=== PATIENT | female | born 1950 | race Caucasian/White ===

== ENCOUNTER 2017-02-01 17:35 | Inpatient (IN) | payer BC, OTHER ==
--- NOTE | 2017-02-01 18:23 | PDOC ---
History of Present Illness - General History Source: Patient Exam Limitations: No Limitations - History of Present Illness Initial Comments: 02/01/17 18:33 The patient is a 66 year old female, with a significant past medical history of high cholesterol, who was sent from an Urgent Care facility and presents to the emergency department with abdominal pain and rectal bleeding since 10 am this morning. She report initially having severe abdominal cramps this morning, followed by multiple episodes of diarrhea. She describes her stool as watery, putty like, and droplets of blood on her toilet paper and around her stool. She denies any alleviation of her pain with the passing of her bowel movement. She denies any recent travel. She denies recently eating any fish or raw meat. She denies eating any new strange food. She notes having these symptoms in the past, but they resolved shortly after a couple of minutes. She denies recent fevers, chills, headache or dizziness. She denies recent nausea, vomit, or constipation. She denies recent dysuria, frequency, urgency or hematuria. She denies recent chest pain or shortness of breath. Allergies: NKA Past surgical history: None reported. Social history: Nonsmoker. Denies EtOH use and recreational drug use. PCP: Dr. Holley (Doctor in [place]). <Jett Britton - Last Filed: 02/01/17 18:37> - General History Source: Patient Exam Limitations: No Limitations <Clarita Levi - Last Filed: 02/02/17 00:55> - General Chief Complaint: Rectal Bleed Stated Complaint: PCP SENT/RECTAL BLEED Time Seen by Provider: 02/01/17 18:15 Past History <Jett Britton - Last Filed: 02/01/17 18:37> - Past Medical History Hypercholesterolemia: Yes - Psycho/Social/Smoking Cessation Hx Suicidal Ideation: No Smoking History: Never smoked <Clarita Levi - Last Filed: 02/02/17 00:55> - Past Medical History Allergies/Adverse Reactions: Allergies Allergy/AdvReac Type Severity Reaction Status Date / Time No Known Allergies Allergy Verified 02/01/17 17:38 Home Medications: Ambulatory Orders Atorvastatin Ca [Lipitor] 10 mg PO HS 02/01/17 Levothyroxine [Synthroid -] 50 mcg PO DAILY 02/01/17 Risedronate Sodium 35 mg PO DAILY 02/01/17 Review of Systems - Review of Systems Able to Perform ROS?: Yes Comments:: 02/01/17 18:32 GENERAL/CONSTITUTIONAL: No: fever, chills, weakness, loss of appetite. HEAD, EYES, EARS, NOSE AND THROAT: No: change in vision, ear pain, discharge, sore throat, throat swelling. CARDIOVASCULAR: No: chest pain, lightheadedness, palpitations, syncope RESPIRATORY: No: cough, shortness of breath, wheezing, hemoptysis, stridor. GASTROINTESTINAL: +abd pain,diarrhea, and rectal bleed. No: nausea, vomiting, rectal bleeding, constipation. GENITOURINARY: No: dysuria, hematuria, frequency, urgency, flank pain. MUSCULOSKELETAL: No: back pain, neck pain, joint pain, muscle swelling or pain SKIN : No: lesions, pallor, rash or easy bruising. NEUROLOGIC: No: headache, vertigo, paresthesias, weakness ENDOCRINE: No: unexplained weight gain or loss HEMATOLOGIC/LYMPHATIC: No: anemia, easy bleeding, swelling nodes. <Jett Britton - Last Filed: 02/01/17 18:37> *Physical Exam - Vital Signs Last Vital Signs Temp Pulse Resp BP Pulse Ox 98.5 F 90 18 169/79 100 02/01/17 17:38 02/01/17 17:38 02/01/17 17:38 02/01/17 17:38 02/01/17 17:38 - Physical Exam Comments: 02/01/17 18:36 GENERAL: The patient is in no acute distress. HEAD: Normal with no signs of trauma. EYES: PERRLA, EOMI, sclera anicteric, conjunctiva clear. ENT: Ears normal, nares patent, oropharynx clear without exudates. Moist mucous membranes. NECK: Normal range of motion, supple without lymphadenopathy, JVD, or masses. LUNGS: Breath sounds equal, clear to auscultation bilaterally. No wheezes, and no crackles. HEART: Regular rate and rhythm, normal S1 and S2 without murmur, rub or gallop. RECTAL: 1 thrombosis external hemorrhoids. No stool in the rectal vault. ABDOMEN: +Epigastric, LLQ, and suprapubic tenderness. Soft, normoactive bowel sounds. No guarding, no rebound. No masses palpable. EXTREMITIES: Normal range of motion, no edema. No clubbing or cyanosis. No erythema, or tenderness. NEUROLOGICAL: Cranial nerves II through XII grossly intact. Normal speech. No focal neurological deficits. MUSCULOSKELETAL: Back non-tender to palpation, no CVA tenderness SKIN: Warm, Dry, normal turgor, no rashes or lesions noted. <Jett Britton - Last Filed: 02/01/17 18:37> - Vital Signs Last Vital Signs Temp Pulse Resp BP Pulse Ox 98.5 F 90 18 169/79 100 02/01/17 17:38 02/01/17 17:38 02/01/17 17:38 02/01/17 17:38 02/01/17 17:38 <Clarita Levi - Last Filed: 02/02/17 00:55> ED Treatment Course - LABORATORY CBC & Chemistry Diagram: 02/01/17 18:40 02/01/17 18:40 <Clarita Levi - Last Filed: 02/02/17 00:55> Medical Decision Making - Medical Decision Making 02/01/17 18:23 A portion of this note was documented by scribe services under my direction. I have reviewed the details of the note, within reason, and agree with the documentation with the following case summary and management plan written by me. Nursing documentation reviewed and incorporated into medical decision making 02/02/17 00:38 This is a 66 yo F with a history of HLD who presents to the ER with a complaint of abdominal pain and rectal bleeding The patient states she was in her usual state of health until this morning She had a small breakfast and developed severe lower abdominal pain she describes it as crampy, severe She has 2 small pasty bowel movement This was then followed by liquid stools which are blood tinged No vomiting Pt was afraid to eat because she was worried this could cause more severe pain She had almost continuous liquid stools with s few table spoons of blood No clots No recent travel No ill contacts No undercooked meat No uncooked seafood No international travel no camping One prior episode like this in June of 2016 Symptoms lasted 1 day and self resolved Pt went to urgent care where her insurance was not accepted She was then sent to another urgent care and told that she will need to come to the ER Pt presents to the ER with 02/02/17 00:51 02/02/17 00:52 Laboratory Tests 02/01/17 02/01/17 02/01/17 18:40 18:40 18:40 WBC 11.1 H Hgb 12.3 Hct 37.0 Plt Count 232 Neutrophils % 75.3 Lymphocytes % 17.3 INR 1.05 BUN 10 Creatinine 0.9 Random Glucose 105 Lactic Acid Urine Blood Urine Nitrite Ur Leukocyte Esterase Stool Occult Blood 02/01/17 02/01/17 02/01/17 18:40 19:23 23:00 WBC Hgb Hct Plt Count Neutrophils % Lymphocytes % INR BUN Creatinine Random Glucose Lactic Acid 2.4 H* Urine Blood Negative Urine Nitrite Negative Ur Leukocyte Esterase Negative Stool Occult Blood Negative CT: Colitis from splenic flexure to sigmoid ? ischemic colitis Case reviewed with Dr Rodríguez Recommends admission Case reviewed with Hospitalist Will give Levaquin and Flagyl NS <Clarita Levi - Last Filed: 02/02/17 00:55> *DC/Admit/Observation/Transfer - Attestations Scribe Attestion: 02/01/17 18:33 Documentation prepared by Jett Britton, acting as medical lab tech instructor for Clarita Levi MD. <Jett Britton - Last Filed: 02/01/17 18:37> - Discharge Dispostion Admit: Yes <Clarita Levi - Last Filed: 02/02/17 00:55> Diagnosis at time of Disposition: Colitis - Discharge Dispostion Condition at time of disposition: Stable - Referrals Referrals: STAFF,NOT ON [Primary Care Provider] -
[2017-02-01 18:51] LABS: EOSINOPHIL 0.1 % (0-4.5); MCH 28.6 pg (25.7-33.7); MCHC 33.4 g/dl (32.0-36.0); MEAN CELL VOLUME 85.7 fl (80-96); MEAN PLT VOLUME 6.7 fl (7.5-11.1); NEUTROPHILS 75.3 % (42.8-82.8); PLATELET COUNT 232 K/MM3 (134-434); RDW 13.9 % (11.6-15.6); WHITE BLOOD COUNT 11.1 K/mm3 (4.0-10.0)
[2017-02-01 19:10] LABS: INR 1.05 (0.82-1.09); PROTHROMBIN TIME (PATIENT) 11.6 SEC (9.98-11.88)
[2017-02-01 19:29] LABS: ALK PHOS 79 U/L (45-117); ANION GAP 11 (8-16); BILIRUBIN,TOTAL 0.4 mg/dL (0.2-1.0); CO2 25 mmol/L (21-32); CREATININE 0.9 mg/dL (0.55-1.02); GLUCOSE,RANDOM 105 mg/dL (74-106); SGOT/AST 22 U/L (15-37); SGPT/ALT 33 U/L (12-78); TOT PROT 7.8 g/dl (6.4-8.2)
[2017-02-01 19:35] LABS: URINE APPEARANCE CLEAR; URINE BILIRUBIN NEGATIVE (NEGATIVE); URINE BLOOD NEGATIVE (NEGATIVE); URINE COLOR COLORLESS; URINE GLUCOSE (UA) NEGATIVE (NEGATIVE); URINE KETONE NEGATIVE (NEGATIVE); URINE LEUK ESTERASE NEGATIVE (NEGATIVE); URINE NITRITE NEGATIVE (NEGATIVE); URINE PROTEIN NEGATIVE (NEGATIVE); URINE UROBILINOGEN NEGATIVE mg/dL (0.2-1.0)
[2017-02-02] MEDS ORDERED: LEVOFLOXACIN 750 MG IVPB 150 ML IVPB ONE ×2 (00:21→00:44)
[2017-02-02] MEDS ORDERED: METRONIDAZOLE 500 MG PREMIXED 100 ML IVPB ONE ×3 (00:21→01:22)
[2017-02-02] MEDS ORDERED: SODIUM CHLORIDE 1,000 ML IV STA ×2 (00:39→03:36)
--- NOTE | 2017-02-02 01:11 | PDOC ---
ED Treatment Course - LABORATORY CBC & Chemistry Diagram: 02/02/17 06:00 02/02/17 06:00 - ADDITIONAL ORDERS Additional order review: Laboratory Results 02/01/17 02/01/17 02/01/17 23:00 19:23 18:40 INR Sodium Potassium Chloride Carbon Dioxide Anion Gap BUN Creatinine Creat Clearance w eGFR Random Glucose Lactic Acid 2.4 H* Calcium Total Bilirubin AST ALT Alkaline Phosphatase Total Protein Albumin Urine Color Colorless Urine Appearance Clear Urine pH 7.0 Ur Specific [place] <= 1.005 Urine Protein Negative Urine Glucose (UA) Negative Urine Ketones Negative Urine Blood Negative Urine Nitrite Negative Urine Bilirubin Negative Urine Urobilinogen Negative Ur Leukocyte Esterase Negative Stool Occult Blood Negative Blood Type Antibody Screen 02/01/17 02/01/17 02/01/17 18:40 18:40 18:40 INR 1.05 Sodium 134 L Potassium 3.7 Chloride 98 Carbon Dioxide 25 Anion Gap 11 BUN 10 Creatinine 0.9 Creat Clearance w eGFR > 60 Random Glucose 105 Lactic Acid Calcium 10.0 Total Bilirubin 0.4 AST 22 ALT 33 Alkaline Phosphatase 79 Total Protein 7.8 Albumin 4.0 Urine Color Urine Appearance Urine pH Ur Specific [place] Urine Protein Urine Glucose (UA) Urine Ketones Urine Blood Urine Nitrite Urine Bilirubin Urine Urobilinogen Ur Leukocyte Esterase Stool Occult Blood Blood Type B NEGATIVE Antibody Screen Negative 02/01/17 18:40 RBC 4.32 MCV 85.7 MCHC 33.4 RDW 13.9 MPV 6.7 L Neutrophils % 75.3 Lymphocytes % 17.3 Monocytes % 6.3 Eosinophils % 0.1 Basophils % 1.0 - RADIOLOGY Radiology Studies Ordered: Category Date Time Status ABDOMEN & PELVIS CT WITH CONTR [CT] Stat CT Scan 02/01/17 19:24 Completed Medical Decision Making - Medical Decision Making 02/02/17 20:09 Case reviewed with [facility] on observation *DC/Admit/Observation/Transfer Diagnosis at time of Disposition: Colitis - Discharge Dispostion Condition at time of disposition: Stable Admit: Yes Decision to Admit order Date/Time: Decision to Admit Order Category Date Time Status Decision to Admit to Hospital Routine Admission 02/02/17 00:55 Active - Referrals - Patient Instructions - Post Discharge Activity
[2017-02-02] MEDS: SODIUM CHLORIDE 1,000 ML IV SCH (01:20)
--- NOTE | 2017-02-02 01:42 | HP ---
CHIEF COMPLAINT: abd pain, diarrhea PCP: in [place] HISTORY OF PRESENT ILLNESS: This is a 66 year old female with past medical history of hyperlipidemia, hypothyroid and osteopenia who presented to the ED with abdominal cramping associated with LBM. Pt states first 2 BMs were pasty and loose but after that were watery with flecks of blood. Pt states the abdominal cramping is usually improved with moving her bowels, but the pain shortly recurs and pt had to spend much of the day on the toilet. Pt denies fever, chills, nausea, vomiting. ER course was notable for: (1) WBC 11.1, afebrile (2) Lactic acid 2.4 (3) CT c/w colitis, ischemic vs infectious/inflammatory Recent Travel: [place] in october, denies travel [facility], [place], camping, hiking PAST MEDICAL HISTORY: HLD Hypothyroid osteopenia PAST SURGICAL HISTORY: pt denies Social History: Smoking: pt denies Alcohol: occ glass of wine or wine cooler Drugs: pt denies Family History: mother age 50s, [place], CHF, asthma father 70s, pancreatic CA to intestines brother with NIDDM half sister 40s, ?brain tumor 2 children, daughter alive and well, son with autism and MR Allergies No Known Allergies Allergy (Verified 02/01/17 17:38) HOME MEDICATIONS: 3 Medication Instructions Recorded Atorvastatin Ca [Lipitor] 10 mg PO HS 02/01/17 Levothyroxine [Synthroid -] 50 mcg PO DAILY 02/01/17 Risedronate Sodium 35 mg PO DAILY 02/01/17 REVIEW OF SYSTEMS CONSTITUTIONAL: Absent: fever, chills, diaphoresis, generalized weakness, malaise, loss of appetite, weight change HEENT: Absent: rhinorrhea, nasal congestion, throat pain, throat swelling, difficulty swallowing, mouth swelling, ear pain, eye pain, visual changes CARDIOVASCULAR: Absent: chest pain, syncope, palpitations, irregular heart rate, lightheadedness , peripheral edema RESPIRATORY: Absent: cough, shortness of breath, dyspnea with exertion, orthopnea, wheezing, stridor, hemoptysis GASTROINTESTINAL: Present: abdominal pain, diarrhea, hematochezia Absent: abdominal distension, nausea, vomiting, constipation, melena GENITOURINARY: Absent: dysuria, frequency, urgency, hesitancy, hematuria, flank pain, genital pain MUSCULOSKELETAL: Absent: myalgia, arthralgia, joint swelling, back pain, neck pain SKIN: Absent: rash, itching, pallor HEMATOLOGIC/IMMUNOLOGIC: Absent: easy bleeding, easy bruising, lymphadenopathy, frequent infections ENDOCRINE: Absent: unexplained weight gain, unexplained weight loss, heat intolerance, cold intolerance NEUROLOGIC: Absent: headache, focal weakness or paresthesias, dizziness, unsteady gait, seizure, mental status changes, bladder or bowel incontinence PSYCHIATRIC: Absent: anxiety, depression, suicidal or homicidal ideation, hallucinations. PHYSICAL EXAMINATION Vital Signs - 24 hr 3 02/01/17 02/01/17 17:38 18:46 Temperature 98.5 F Pulse Rate 90 Respiratory 18 Rate Blood Pressure 169/79 O2 Sat by Pulse 100 100 Oximetry (%) GENERAL: Awake, alert, and fully oriented, in no acute distress. HEAD: Normal with no signs of trauma. EYES: Pupils equal, round and reactive to light, extraocular movements intact, sclera anicteric, conjunctiva clear. No lid lag. EARS, NOSE, THROAT: Ears normal, nares patent, oropharynx clear without exudates. Moist mucous membranes. NECK: Normal range of motion, supple without lymphadenopathy, JVD, or masses. LUNGS: Breath sounds equal, clear to auscultation bilaterally. No wheezes, and no crackles. No accessory muscle use. HEART: Regular rate and rhythm, normal S1 and S2 without murmur, rub or gallop. ABDOMEN: Soft, not distended, normoactive bowel sounds, no guarding, no rebound , no masses. No hepatomegaly or splenomegaly. tender B/L LQ, R>L MUSCULOSKELETAL: Normal range of motion at all joints. No bony deformities or tenderness. No CVA tenderness. UPPER EXTREMITIES: 2+ pulses, warm, well-perfused. No cyanosis. No clubbing. No peripheral edema. LOWER EXTREMITIES: 2+ pulses, warm, well-perfused. No calf tenderness. No peripheral edema. NEUROLOGICAL: Cranial nerves II-XII intact. Normal speech. Normal gait. PSYCHIATRIC: Cooperative. Good eye contact. Appropriate mood and affect. SKIN: Warm, dry, normal turgor, no rashes or lesions noted, normal capillary refill. Laboratory Results - last 24 hr 3 02/01/17 02/01/17 02/01/17 02/01/17 18:40 18:40 18:40 23:00 WBC 11.1 H RBC 4.32 Hgb 12.3 Hct 37.0 MCV 85.7 MCH 28.6 MCHC 33.4 RDW 13.9 Plt Count 232 MPV 6.7 L Neutrophils % 75.3 Lymphocytes % 17.3 Monocytes % 6.3 Eosinophils % 0.1 Basophils % 1.0 INR 1.05 Sodium 134 L Potassium 3.7 Chloride 98 Carbon Dioxide 25 Anion Gap 11 BUN 10 Creatinine 0.9 Creat Clearance w eGFR > 60 Random Glucose 105 Lactic Acid 2.4 H* Calcium 10.0 Total Bilirubin 0.4 AST 22 ALT 33 Alkaline Phosphatase 79 Total Protein 7.8 Albumin 4.0 Urine Color Urine Appearance Urine pH Ur Specific [place] Urine Protein Urine Glucose (UA) Urine Ketones Urine Blood Urine Nitrite Urine Bilirubin Urine Urobilinogen Ur Leukocyte Esterase Stool Occult Blood Negative Blood Type B NEGATIVE Antibody Screen Negative 3 Urine Color Colorless 02/01/17 19:23 Urine Appearance Clear 02/01/17 19:23 Urine pH 7.0 (5.0-8.0) 02/01/17 19:23 Ur Specific [place] <= 1.005 (1.005-1.025) 02/01/17 19:23 Urine Protein Negative (NEGATIVE) 02/01/17 19:23 Urine Glucose (UA) Negative (NEGATIVE) 02/01/17 19:23 Urine Ketones Negative (NEGATIVE) 02/01/17 19:23 Urine Blood Negative (NEGATIVE) 02/01/17 19:23 Urine Nitrite Negative (NEGATIVE) 02/01/17 19:23 Urine Bilirubin Negative (NEGATIVE) 02/01/17 19:23 Ur Leukocyte Esterase Negative (NEGATIVE) 02/01/17 19:[address]/ABDOMEN PELVIS CT WITH CONTR Abdomen and pelvis CT (with contrast) Clinical information: left lower quadrant tenderness, rectal bleeding Multiplanar imaging was performed utilizing intravenous and oral contrast. Continuous concentric wall edema is seen involving the left colon from the level of the splenic flexure to the sigmoid region consistent with colitis. There is probable associated minimal pericolonic edema. No obvious colonic diverticulosis. There is no evidence of pneumoperitoneum allowing that the level of the right hepatic dome is incompletely visualized on the submitted study. No evidence of bowel obstruction, free intraperitoneal fluid or abscess. There is diffuse fatty infiltration of the liver. The spleen, pancreas, gallbladder, adrenal glands and kidneys demonstrate no discrete abnormality. There is no aortic aneurysm. No obvious lymphadenopathy is noted. There is equivocal partial visualization of the appendix. No obvious abnormality is seen. There is no gross small bowel pathology. No definite pelvic abnormality is identified. Impression: Acute colitis is seen involving the length of the left colon from the level of the splenic flexure through the sigmoid region - ? ischemic versus inflammatory/infectious etiology. Diffuse hepatic steatosis. Reported By: Italo Hernandez MD 02/01/17 [id number] ASSESSMENT/PLAN: 66yF with PMH HLD, hypothyroid and osteopenia presented to the ED with abdominal cramping and diarrhea which progressed to have blood in it. She is being admitted for further evaluation and treatment. Colitis - unclear etiology - will cont IV antibiotics - GI consulted by ED and recommended antibiotics - IVF NS @ 75cc/hr - NPO for now Lactic acidosis - Repeat pending after 1L bolus - likely due to dehydration, reassess after repeat obtained Hyperlipidemia - hold statin for now Hypothyroidism - cont synthroid Osteopenia - cont risendronate DVT PPX - deferred, expected LOS < 48h FEN - NS @ 75cc/hr - BMP in am - NPO for now Dispo: Pt currently requires inpatient monitoring for management of her emergent condition. Visit type - Emergency Visit Emergency Visit: Yes ED Registration Date: 02/01/17 Care time: The patient presented to the Emergency Department on the above date and was hospitalized for further evaluation of their emergent condition. - New Patient This patient is new to me today: Yes Date on this admission: 02/02/17 - Critical Care Critical Care patient: No
[2017-02-02 03:13] VITALS: BMI 29.9
[2017-02-02] MEDS: LEVOTHYROXINE NA 50 MCG TABLET (FP) PO SCH (06:44)
[2017-02-02 07:51] LABS: BASOPHIL 0.5 % (0-2.0); MCHC 33.8 g/dl (32.0-36.0); MEAN CELL VOLUME 85.7 fl (80-96); MEAN PLT VOLUME 6.9 fl (7.5-11.1); NEUTROPHILS 68.2 % (42.8-82.8); PLATELET COUNT 222 K/MM3 (134-434); WHITE BLOOD COUNT 8.6 K/mm3 (4.0-10.0)
[2017-02-02 07:58] LABS: ANION GAP 8 (8-16); CALCIUM 8.8 mg/dL (8.5-10.1); CO2 25 mmol/L (21-32); CREATININE 0.8 mg/dL (0.55-1.02); GLUCOSE,RANDOM 109 mg/dL (74-106); MAGNESIUM 1.9 mg/dL (1.8-2.4); PHOSPHOROUS 3.5 mg/dL (2.5-4.9)
[2017-02-02] MEDS ORDERED: DEXTROSE 5%-WATER - 50 ML IVPB ONE (09:03)
[2017-02-02] MEDS ORDERED: cefTRIAXone SODIUM 1 GM VIAL ONE (09:03)
[2017-02-02] MEDS: METRONIDAZOLE 500 MG PREMIXED 100 ML IVPB SCH ×2 (09:25→17:30)
[2017-02-02] MEDS: CEFTRIAXONE 1 GM in DEXTROSE 5%-WATER - 50 ML IVPB SCH (10:24)
[2017-02-02] MEDS ORDERED: PANTOPRAZOLE SODIUM 40 MG VIAL ONE (12:05)
[2017-02-02] MEDS ORDERED: SODIUM CHLORIDE 100 ML IVPB ONE (12:06)
[2017-02-02] MEDS: PANTOPRAZOLE SODIUM 40 MG in SODIUM CHLORIDE 100 ML IVPB SCH (12:12)
--- NOTE | 2017-02-02 14:19 | CON.GI ---
Consult Consult Specialty:: GASTROENTEROLOGY - History of Present Illness Chief Complaint: SEVERE ABDOMINAL PAIN, DIARRHEA AND RECTAL BLEEDING History of Present Illness: 66 YO FEMALE FROM [place] ADMITTED WITH ABDOMINAL PAIN AND DIARRHEA WITH RECTAL BLEEDING (LEFT SIDED COLITIS ON CT SCAN ) IS STILL RELUCTANT TO STAY INPATIENT AND ASKING IF SHE CAN GO HOME. SHE HAS HAD COLONOSCOPIES IN THE PAST THAT SHE SAYS WERE NORMAL. SHE WAS IN HER USUAL STATE OF HEALTH WHEN YESTERDAY SHE DEVELOPED SEVERE LOWER LEFT SIDED ABDOMINAL PAIN, RECTAL BLEEDING AND DIARRHEA. SHE HAD MULTIPLE BOWEL MOVEMENTS ALL DAY AND WHEN SHE KEPT BLEEDING SHE WENT TO THE ER AND CT SCAN DONE REVEALED A LEFT SIDED COLITIS. SHE HAS HAD 3 BOWEL MOVEMENTS TODAY SINCE 5 AM AND HAD ONE BLEEDING EPISODE. SHE STILL WANTS TO GO HOME STATING THAT HER SON IN IN IS DISABLED AND SHE NEEDS TO SEE HIM. I HAVE EXPLAINED THE DIAGNOSIS AND PATHOPHYSIOLOGY OF COLITIS AND ISCHEMIC COLITIS BUT DESPITE THIS SHE DOES NOT WANT TO STAY INPATIENT. - History Source History Provided By: Patient Limitations to Obtaining History: Other (GUARDED AND SOMEWHAT UNCOOPERATIVE) - Past Medical History SOCIAL SCIENCE ANALYST: No: Alzheimer's, CVA, Dementia, Migraine, Multiple Sclerosis, Peripheral Neuropathy, Parkinson's, Seizure, Syncope, TIA, Vertigo, Other Cardio/Vascular: Yes: Hyperlipdemia Pulmonary: No: Asthma, Bronchitis, Cancer, COPD, O2 Dependent, Pneumonia, Previously Intubated, Pulmonary Embolus, Pulmonary Fibrosis, Sleep Apnea, Other Gastrointestinal: Yes: Other ( ABOVE) Hepatobiliary: No: Cirrhosis, Cholelithiasis, Cholecystitis, Choledocholithiasis , Hepatitis A, Hepatitis B, Hepatitis C, Other Renal/: No: Renal Failure, Renal Inusuff, BPH, Cancer, Hematuria, Hemodialysis , Neurogenic Bladder, Renal Calculi, UTI, Other Reproductive: No: Ectopic , Endometriosis, Fibroids, PID, Polycystic Ovary Syndrome, Postmenopausal, Other ...: No Endocrine: Yes: Hypothyroidism, Other (OSTEOPOROSIS) - Past Surgical History Past Surgical History: Yes: Colonoscopy - Alcohol/Substance Use Hx Alcohol Use: No - Smoking History Smoking history: Never smoked Home Medications - Allergies Allergies/Adverse Reactions: Allergies Allergy/AdvReac Type Severity Reaction Status Date / Time No Known Allergies Allergy Verified 02/01/17 17:38 - Home Medications Home Medications: Ambulatory Orders Atorvastatin Ca [Lipitor] 10 mg PO HS 02/01/17 Levothyroxine [Synthroid -] 50 mcg PO DAILY 02/01/17 Risedronate Sodium 35 mg PO DAILY 02/01/17 Review of Systems - Review of Systems Constitutional: reports: Loss of Appetite Eyes: reports: No Symptoms HENT: reports: No Symptoms Neck: reports: No Symptoms Cardiovascular: reports: No Symptoms Respiratory: reports: No Symptoms Gastrointestinal: reports: Abdominal Pain, Diarrhea, Rectal Bleeding Genitourinary: reports: No Symptoms Musculoskeletal: reports: No Symptoms Integumentary: reports: No Symptoms Neurological: reports: No Symptoms Endocrine: reports: No Symptoms Hematology/Lymphatic: reports: No Symptoms Psychiatric: reports: No Symptoms Physical Exam-GI Vital Signs: Vital Signs Temperature 99.1 F 02/02/17 06:47 Pulse Rate 91 H 02/02/17 06:47 Respiratory Rate 18 02/02/17 06:47 Blood Pressure 135/82 02/02/17 06:47 O2 Sat by Pulse Oximetry (%) 97 02/02/17 02:58 Constitutional: Yes: Well Nourished, No Distress, Anxious Eyes: Yes: Conjunctiva Clear HENT: Yes: Normocephalic Neck: Yes: Supple Cardiovascular: Yes: Regular Rate and Rhythm Respiratory: Yes: Regular Gastrointestinal Inspection: Yes: WNL ...Auscultate: Yes: Hypoactive Bowel Sounds ...Palpate: Yes: Soft, Other (MILD TENDERNESS IN THE LLQ NO GUARDING OR REBOUND) ...Rectal Exam: Yes: Other ( ED) Extremities: Yes: WNL Integumentary: Yes: WNL Neurological: Yes: Alert, Oriented Labs: CBC, BMP 02/02/17 06:00 02/02/17 06:00 INR, PTT INR 1.05 (0.82-1.09) 02/01/17 18:40 Laboratory Tests 02/01/17 02/01/17 02/01/17 18:40 18:40 18:40 WBC 11.1 H RBC 4.32 Hgb 12.3 Hct 37.0 MCV 85.7 MCH 28.6 MCHC 33.4 RDW 13.9 Plt Count 232 MPV 6.7 L Neutrophils % 75.3 Lymphocytes % 17.3 Monocytes % 6.3 Eosinophils % 0.1 Basophils % 1.0 INR 1.05 Sodium Potassium Chloride Carbon Dioxide Anion Gap BUN Creatinine Random Glucose Lactic Acid Calcium Phosphorus Magnesium Total Bilirubin 0.4 AST 22 ALT 33 Alkaline Phosphatase 79 Total Protein 7.8 Albumin 4.0 Stool Occult Blood 02/01/17 02/01/17 02/02/17 18:40 23:00 02:19 WBC RBC Hgb Hct MCV MCH MCHC RDW Plt Count MPV Neutrophils % Lymphocytes % Monocytes % Eosinophils % Basophils % INR Sodium Potassium Chloride Carbon Dioxide Anion Gap BUN Creatinine Random Glucose Lactic Acid 2.4 H* 2.5 H* Calcium Phosphorus Magnesium Total Bilirubin AST ALT Alkaline Phosphatase Total Protein Albumin Stool Occult Blood Negative 02/02/17 02/02/17 02/02/17 06:00 06:00 06:00 WBC 8.6 RBC 4.13 Hgb 12.0 Hct 35.4 MCV 85.7 MCH 29.0 MCHC 33.8 RDW 14.0 Plt Count 222 MPV 6.9 L Neutrophils % Lymphocytes % 21.2 D Monocytes % 9.1 Eosinophils % 1.0 D Basophils % 0.5 INR Sodium 140 Potassium 4.0 Chloride 107 Carbon Dioxide 25 Anion Gap 8 BUN 8 Creatinine 0.8 Random Glucose 109 H Lactic Acid 2.0 Calcium 8.8 Phosphorus 3.5 Magnesium 1.9 Total Bilirubin AST ALT Alkaline Phosphatase Total Protein Albumin Stool Occult Blood Imaging - Results Cat Scan: Image Reviewed Problem List - Problems (1) Colitis Assessment/Plan: THE ABOVE CLINICAL PICTURE IS SUGGESTIVE OF ISCHEMIC COLITIS. I HAVE EXPLAINED THIS AND ITS COMPLICATIONS AND PATHOPHYSIOLOGY AND I TOLD THE PATIENT I CAN NOT RECOMMEND DISCHARGE FROM THE HOSPITAL. SHE WILL SPEAK WITH THE ADMITTED PHYSICIAN TO DISCUSS THIS FURTHER. ADVANCE TO CLEARS, SERIAL CBC AND ABDOMINAL EXAMS. FOLLOW UP CULTURE OF STOOL IF NEG A SIGMOIDOSCOPY ON SATURDAY IS PLANNED, IF CULTURE IS POSITIVE TREAT APPROPRIATELY AND PATIENT MAY BE ABLE TO GO HOME ON ORAL ABX. Code(s): K52.9 - NONINFECTIVE GASTROENTERITIS AND COLITIS, UNSPECIFIED (2) Abdominal pain Code(s): R10.9 - UNSPECIFIED ABDOMINAL PAIN (3) Rectal bleeding Code(s): K62.5 - HEMORRHAGE OF ANUS AND RECTUM (4) Diarrhea Code(s): R19.7 - DIARRHEA, UNSPECIFIED
--- NOTE | 2017-02-02 15:40 | PN ---
Physical Exam: SUBJECTIVE: Patient seen and examined at the bedside. She appears anxious about being in the hospital and is concerned over her disabled son at home. States her son is well taken care of. She is willing to stay in the hospital. She denies abdominal pain but verbalizes intermittent episodes of suprapubic cramping. OBJECTIVE: Lactic acidosis resolved On Rocephin and Flagyl Vital Signs Period Temp Pulse Resp BP Sys/Arenas Pulse Ox Last 24 Hr 99 F-99.1 F 78-91 18-20 122-141/57-89 97-97 GENERAL: Awake, alert, and fully oriented, in no acute distress. HEAD: Normal with no signs of trauma. EYES: Pupils equal, round and reactive to light, extraocular movements intact, sclera anicteric, conjunctiva clear. No lid lag. EARS, NOSE, THROAT: Ears normal, nares patent, oropharynx clear without exudates. Moist mucous membranes. NECK: Normal range of motion, supple without lymphadenopathy, JVD, or masses. LUNGS: Breath sounds equal, clear to auscultation bilaterally. No wheezes, and no crackles. No accessory muscle use. HEART: Regular rate and rhythm, normal S1 and S2 without murmur, rub or gallop. ABDOMEN: Soft, not distended, + tender LLQ and RLQ MUSCULOSKELETAL: Normal range of motion at all joints. No bony deformities or tenderness. No CVA tenderness. UPPER EXTREMITIES: 2+ pulses, warm, well-perfused. No cyanosis. No clubbing. No peripheral edema. LOWER EXTREMITIES: 2+ pulses, warm, well-perfused. No calf tenderness. No peripheral edema. NEUROLOGICAL: Cranial nerves II-XII intact. Normal speech. Normal gait. PSYCHIATRIC: Cooperative. Good eye contact. Appropriate mood and affect. SKIN: Warm, dry, normal turgor, no rashes or lesions noted, normal capillary refill. Laboratory Results - last 24 hr 02/02/17 02/02/17 02/02/17 02:19 06:00 06:00 WBC 8.6 RBC 4.13 Hgb 12.0 Hct 35.4 MCV 85.7 MCH 29.0 MCHC 33.8 RDW 14.0 Plt Count 222 MPV 6.9 L Neutrophils % 68.2 Lymphocytes % 21.2 D Monocytes % 9.1 Eosinophils % 1.0 D Basophils % 0.5 Sodium 140 Potassium 4.0 Chloride 107 Carbon Dioxide 25 Anion Gap 8 BUN 8 Creatinine 0.8 Random Glucose 109 H Lactic Acid 2.5 H* Calcium 8.8 Phosphorus 3.5 Magnesium 1.9 02/02/17 06:00 WBC RBC Hgb Hct MCV MCH MCHC RDW Plt Count MPV Neutrophils % Lymphocytes % Monocytes % Eosinophils % Basophils % Sodium Potassium Chloride Carbon Dioxide Anion Gap BUN Creatinine Random Glucose Lactic Acid 2.0 Calcium Phosphorus Magnesium Active Medications Generic Name Dose Route Start Last Admin Trade Name Wilmar PRN Reason Stop Dose Admin Sodium Chloride 1,000 mls @ 75 mls/hr 02/02/17 00:30 02/02/17 01:20 Normal Saline - IV 75 mls/hr ASDIR MELANIA Administration Metronidazole 100 mls @ 100 mls/hr 02/02/17 10:00 02/02/17 09:25 Flagyl 500mg Premixed Ivpb - IVPB 100 mls/hr Q8H-IV MELANIA Administration Ceftriaxone Sodium 1 gm/ 50 mls @ 100 mls/hr 02/02/17 10:00 02/02/17 10:24 Dextrose IVPB 100 mls/hr DAILY MELANIA Administration Pantoprazole Sodium 40 mg/ 100 mls @ 200 mls/hr 02/02/17 11:30 02/02/17 12:12 Sodium Chloride IVPB 200 mls/hr DAILY MELANIA Administration Levothyroxine Sodium 50 mcg 02/02/17 07:00 02/02/17 06:44 Synthroid - PO 50 mcg DAILY@0700 MELANIA Administration ASSESSMENT/PLAN: Patient is a 66 year old female with a significant past medical history of high cholesterol and osteopenia who was sent to [facility] from an Urgent Care facility for abdominal pain and rectal bleeding. Patient reports intermittent episodes of severe abdominal cramps followed by multiple episodes of diarrhea with "specks of blood". She denies any recent travel, eating any new foods. She denies every having these symptoms in the past. She further denies any fevers, chills, headache or dizziness. She denies chest pain, shortness of breath, nausea, vomiting or constipation. GI: Colitis - acute A/P: Patient denies having any similar symptoms in the past On Ceftriaxone and Flagyl NS @75cc/hr, started on clears as per GI Stool culture pending Monitor hmg/hct Diet advanced to clears as per GI Monitor labs, follow up stool studies Probable sigmoidoscopy on Saturday as per GI Lactic acidosis now resolved Cardiology: Hyperlipidemia A/P: Lipid panel in a.m., continue home statin Endocrine: Hypothyroidism A/P: On synthroid 50mcg F.E.N. Fluids: NS @75cc/hr Electrolytes: monitor bmp Nutrition: clears, advance a per GI Prophylaxis: DVT: ambulatory, no AC secondary to GI bleeding episodes GI; Protonix 40mg daily Disposition: Pt currently requires inpatient monitoring for management of her emergent condition. Visit type - Emergency Visit Emergency Visit: Yes ED Registration Date: 02/02/17 Care time: The patient presented to the Emergency Department on the above date and was hospitalized for further evaluation of their emergent condition. - New Patient This patient is new to me today: Yes Date on this admission: 02/02/17 - Critical Care Critical Care patient: No - Discharge Referral Referred to [facility] Med P.C.: No
[2017-02-02] MEDS ORDERED: PT OWN MED DRAWER 7, Y5N ONE (21:01)
[2017-02-02] MEDS: ATORVASTATIN CA 10 MG TABLET (FP) PO SCH (21:17)
[2017-02-02] MEDS ORDERED: LEVOFLOXACIN 750 MG IVPB 150 ML IVPB SCH (22:00)
[2017-02-03] MEDS: METRONIDAZOLE 500 MG PREMIXED 100 ML IVPB SCH ×3 (01:03→17:06)
[2017-02-03] MEDS: SODIUM CHLORIDE 1,000 ML IV SCH ×2 (01:04→15:50)
[2017-02-03] MEDS: LEVOTHYROXINE NA 50 MCG TABLET (FP) PO SCH (06:03)
[2017-02-03 07:34] LABS: BASOPHIL 0.8 % (0-2.0); EOSINOPHIL 3.6 % (0-4.5); MCHC 33.9 g/dl (32.0-36.0); MEAN CELL VOLUME 85.6 fl (80-96); MEAN PLT VOLUME 6.8 fl (7.5-11.1); NEUTROPHILS 55.8 % (42.8-82.8); PLATELET COUNT 215 K/MM3 (134-434); RDW 14.2 % (11.6-15.6); WHITE BLOOD COUNT 7.3 K/mm3 (4.0-10.0)
[2017-02-03 07:52] LABS: ALBUMIN 3.6 g/dl (3.4-5.0); ANION GAP 7 (8-16); CALCIUM 8.3 mg/dL (8.5-10.1); CHOLESTEROL 186 mg/dL (50-200); CO2 27 mmol/L (21-32); CREATININE 0.8 mg/dL (0.55-1.02); GLUCOSE,RANDOM 99 mg/dL (74-106); SGOT/AST 21 U/L (15-37); SGPT/ALT 28 U/L (12-78)
[2017-02-03 07:54] LABS: ALK PHOS 64 U/L (45-117); BILIRUBIN,TOTAL 0.4 mg/dL (0.2-1.0); LDL CHOLESTEROL (ONLY SJRH) 109 mg/dL (5-100); TOT PROT 7.1 g/dl (6.4-8.2)
[2017-02-03] MEDS ORDERED: DEXTROSE 5%-WATER - 50 ML IVPB ONE (08:30)
[2017-02-03] MEDS ORDERED: cefTRIAXone SODIUM 1 GM VIAL ONE (08:30)
[2017-02-03] MEDS ORDERED: SODIUM CHLORIDE 100 ML IVPB ONE (08:31)
[2017-02-03] MEDS ORDERED: PANTOPRAZOLE SODIUM 40 MG VIAL ONE (08:31)
[2017-02-03] MEDS: CEFTRIAXONE 1 GM in DEXTROSE 5%-WATER - 50 ML IVPB SCH (09:49)
[2017-02-03] MEDS: PANTOPRAZOLE SODIUM 40 MG in SODIUM CHLORIDE 100 ML IVPB SCH (09:51)
[2017-02-03] MEDS ORDERED: ACETAMINOPHEN 325 MG TABLET (FP) PO PRN (13:22)
--- NOTE | 2017-02-03 14:51 | PN ---
GI Progress Note Subjective: GASTROENTEROLOGY FEELS A LITTLE BETTER HAD MININMAL BLEEDING TODAY STOOL CULTURES ARE NEGATIVE - Objective Vital Signs: Vital Signs Temperature 98.9 F 02/03/17 10:10 Pulse Rate 74 02/03/17 10:10 Respiratory Rate 20 02/03/17 10:10 Blood Pressure 122/81 02/03/17 10:10 O2 Sat by Pulse Oximetry (%) 98 02/03/17 10:00 Constitutional: Well Nourished, No Distress Eyes: Yes: Conjunctiva Clear HENT: Yes: Atraumatic Neck: Yes: Supple Cardiovascular: Yes: Regular Rate and Rhythm Respiratory: Yes: Regular Gastrointestinal Inspection: Yes: WNL ...Auscultate: Yes: Normoactive Bowel Sounds ...Palpate: Yes: Tenderness (MILD LLQ PAIN) Extremities: Yes: WNL Labs: CBC, BMP 02/03/17 06:00 02/03/17 06:00 INR, PTT INR 1.05 (0.82-1.09) 02/01/17 18:40 Problem List - Problems (1) Colitis Assessment/Plan: STOOL CULTURES NEG FEELS BETTER CONTINUE IVF AND ABX FOR FLEX SIG TOMORROW TIME YET TO BE DETERMINED NPO AFTER BREAKFAST Code(s): K52.9 - NONINFECTIVE GASTROENTERITIS AND COLITIS, UNSPECIFIED (2) Abdominal pain Code(s): R10.9 - UNSPECIFIED ABDOMINAL PAIN (3) Rectal bleeding Code(s): K62.5 - HEMORRHAGE OF ANUS AND RECTUM (4) Diarrhea Code(s): R19.7 - DIARRHEA, UNSPECIFIED
--- NOTE | 2017-02-03 16:38 | PN ---
Physical Exam: SUBJECTIVE: Patient seen and examined at the bedside. States her pain is improving, but still having some bloody stools. Denies any nausea or vomiting. Tolerating diet but verbalizes intermittent lower abdominal pain. OBJECTIVE: On Rocephin and Flagly Lactic acidosis now resolved, remains afebrile For a flex sigmoid in a.m.: NPO after breakfast hmg/hct remain stable Vital Signs Period Temp Pulse Resp BP Sys/Arenas Pulse Ox Last 24 Hr 98.1 F-98.9 F 72-82 18-20 121-140/60-81 97-98 GENERAL: Awake, alert, and fully oriented, in no acute distress. HEAD: Normal with no signs of trauma. EYES: Pupils equal, round and reactive to light, extraocular movements intact, sclera anicteric, conjunctiva clear. No lid lag. EARS, NOSE, THROAT: Ears normal, nares patent, oropharynx clear without exudates. Moist mucous membranes. NECK: Normal range of motion, supple without lymphadenopathy, JVD, or masses. LUNGS: Breath sounds equal, clear to auscultation bilaterally. No wheezes, and no crackles. No accessory muscle use. HEART: Regular rate and rhythm, normal S1 and S2 without murmur, rub or gallop. ABDOMEN: Soft, not distended, + tender LLQ and RLQ MUSCULOSKELETAL: Normal range of motion at all joints. No bony deformities or tenderness. No CVA tenderness. UPPER EXTREMITIES: 2+ pulses, warm, well-perfused. No cyanosis. No clubbing. No peripheral edema. LOWER EXTREMITIES: 2+ pulses, warm, well-perfused. No calf tenderness. No peripheral edema. NEUROLOGICAL: Cranial nerves II-XII intact. Normal speech. Normal gait. PSYCHIATRIC: Cooperative. Good eye contact. Appropriate mood and affect. SKIN: Warm, dry, normal turgor, no rashes or lesions noted, normal capillary refill. Laboratory Results - last 24 hr 02/03/17 02/03/17 06:00 06:00 WBC 7.3 RBC 4.17 Hgb 12.1 Hct 35.7 MCV 85.6 MCH 29.0 MCHC 33.9 RDW 14.2 Plt Count 215 MPV 6.8 L Neutrophils % 55.8 Lymphocytes % 30.8 D Monocytes % 9.0 Eosinophils % 3.6 D Basophils % 0.8 Sodium 140 Potassium 3.9 Chloride 106 Carbon Dioxide 27 Anion Gap 7 L BUN 6 L D Creatinine 0.8 Creat Clearance w eGFR > 60 Random Glucose 99 Calcium 8.3 L Total Bilirubin 0.4 AST 21 ALT 28 Alkaline Phosphatase 64 Total Protein 7.1 Albumin 3.6 Triglycerides 130 Cholesterol 186 Total LDL Cholesterol 109 H HDL Cholesterol 63 H Active Medications Generic Name Dose Route Start Last Admin Trade Name Wilmar PRN Reason Stop Dose Admin Acetaminophen 650 mg 02/03/17 13:22 Tylenol - PO Q6H PRN FEVER OR PAIN Atorvastatin Calcium 10 mg 02/02/17 22:00 02/02/17 21:17 Lipitor - PO 10 mg HS MELANIA Administration Sodium Chloride 1,000 mls @ 75 mls/hr 02/02/17 00:30 02/03/17 15:50 Normal Saline - IV 75 mls/hr ASDIR MELANIA Administration Metronidazole 100 mls @ 100 mls/hr 02/02/17 10:00 02/03/17 09:00 Flagyl 500mg Premixed Ivpb - IVPB 100 mls/hr Q8H-IV MELANIA Administration Ceftriaxone Sodium 1 gm/ 50 mls @ 100 mls/hr 02/02/17 10:00 02/03/17 09:49 Dextrose IVPB 100 mls/hr DAILY MELANIA Administration Pantoprazole Sodium 40 mg/ 100 mls @ 200 mls/hr 02/02/17 11:30 02/03/17 09:51 Sodium Chloride IVPB 200 mls/hr DAILY MELANIA Administration Levothyroxine Sodium 50 mcg 02/02/17 07:00 02/03/17 06:03 Synthroid - PO 50 mcg DAILY@0700 MELANIA Administration ASSESSMENT/PLAN: Patient is a 66 year old female with a significant past medical history of high cholesterol and osteopenia who was sent to [place] from an Urgent Care facility for abdominal pain and rectal bleeding. Patient reports intermittent episodes of severe abdominal cramps followed by multiple episodes of diarrhea with "specks of blood". She denies any recent travel, eating any new foods. She denies every having these symptoms in the past. She further denies any fevers, chills, headache or dizziness. She denies chest pain, shortness of breath, nausea, vomiting or constipation. GI: Colitis - acute A/P: Patient denies having any similar symptoms in the past On Ceftriaxone and Flagyl since 02/02/2017 NS @75cc/hr, started on full liquids diet as per GI Stool cultures negative Monitor hmg/hct Sigmoidoscopy tomorrow as per GI, can have breakfast, then NPO Lactic acidosis now resolved Cardiology: Hyperlipidemia A/P: Lipid panel reviewed, continue home statin Endocrine: Hypothyroidism A/P: On synthroid 50mcg F.E.N. Fluids: NS @75cc/hr Electrolytes: monitor bmp Nutrition: clears, advance a per GI Prophylaxis: DVT: ambulatory, no AC secondary to GI bleeding episodes GI; Protonix 40mg daily Disposition: Pt currently requires inpatient monitoring for management of her emergent condition. Full Code. Visit type - Emergency Visit Emergency Visit: Yes ED Registration Date: 02/02/17 Care time: The patient presented to the Emergency Department on the above date and was hospitalized for further evaluation of their emergent condition. - New Patient This patient is new to me today: No - Critical Care Critical Care patient: No - Discharge Referral Referred to [facility] Med P.C.: No
[2017-02-03] MEDS: ATORVASTATIN CA 10 MG TABLET (FP) PO SCH (21:43)
[2017-02-04] MEDS: SODIUM CHLORIDE 1,000 ML IV SCH ×2 (00:54→06:02)
[2017-02-04] MEDS: METRONIDAZOLE 500 MG PREMIXED 100 ML IVPB SCH ×3 (01:00→18:30)
[2017-02-04] MEDS: LEVOTHYROXINE NA 50 MCG TABLET (FP) PO SCH (06:01)
[2017-02-04 08:13] LABS: EOSINOPHIL 3.4 % (0-4.5); MCH 29.3 pg (25.7-33.7); MEAN CELL VOLUME 86.2 fl (80-96); MEAN PLT VOLUME 6.8 fl (7.5-11.1); NEUTROPHILS 53.1 % (42.8-82.8); PLATELET COUNT 233 K/MM3 (134-434); RDW 14.1 % (11.6-15.6); WHITE BLOOD COUNT 7.7 K/mm3 (4.0-10.0)
[2017-02-04 08:35] LABS: ALBUMIN 3.8 g/dl (3.4-5.0); ALK PHOS 68 U/L (45-117); ANION GAP 9 (8-16); BILIRUBIN,TOTAL 0.3 mg/dL (0.2-1.0); CALCIUM 8.3 mg/dL (8.5-10.1); CO2 27 mmol/L (21-32); CREATININE 0.9 mg/dL (0.55-1.02); GLUCOSE,RANDOM 96 mg/dL (74-106); SGOT/AST 28 U/L (15-37); SGPT/ALT 33 U/L (12-78); TOT PROT 7.7 g/dl (6.4-8.2)
[2017-02-04] MEDS ORDERED: cefTRIAXone SODIUM 1 GM VIAL ONE (09:03)
[2017-02-04] MEDS ORDERED: DEXTROSE 5%-WATER - 50 ML IVPB ONE (09:04)
[2017-02-04] MEDS ORDERED: PANTOPRAZOLE SODIUM 40 MG VIAL ONE ×2 (09:04→11:56)
[2017-02-04] MEDS ORDERED: SODIUM CHLORIDE 100 ML IVPB ONE (09:05)
[2017-02-04] MEDS: CEFTRIAXONE 1 GM in DEXTROSE 5%-WATER - 50 ML IVPB SCH (09:08)
[2017-02-04] MEDS: PANTOPRAZOLE SODIUM 40 MG in SODIUM CHLORIDE 100 ML IVPB SCH (09:09)
[2017-02-04] MEDS: SODIUM PHOSPHATE/NA BIPHOS 133 ML ENEMA RC SCH ×2 (13:00→14:00)
--- NOTE | 2017-02-04 13:59 | PN ---
Progress Note (short form) - Note Progress Note: Subjective: The patient was seen and examined at the bedside, she reports receiving her first enema in preparation for her flex sigmoidoscopy today. Current Medications Generic Name Dose Route Start Last Admin Trade Name Fredon PRN Reason Stop Dose Admin Acetaminophen 650 mg 02/03/17 13:22 Tylenol - PO Q6H PRN FEVER OR PAIN Atorvastatin Calcium 10 mg 02/02/17 22:00 02/03/17 21:43 Lipitor - PO 10 mg HS MELANIA Administration Sodium Chloride 1,000 mls @ 75 mls/hr 02/02/17 00:30 02/04/17 06:02 Normal Saline - IV 75 mls/hr ASDIR MELANIA Administration Metronidazole 100 mls @ 100 mls/hr 02/02/17 10:00 02/04/17 09:10 Flagyl 500mg Premixed Ivpb - IVPB 100 mls/hr Q8H-IV MELANIA Administration Ceftriaxone Sodium 1 gm/ 50 mls @ 100 mls/hr 02/02/17 10:00 02/04/17 09:08 Dextrose IVPB 100 mls/hr DAILY MELANIA Administration Pantoprazole Sodium 40 mg/ 100 mls @ 200 mls/hr 02/02/17 11:30 02/04/17 09:09 Sodium Chloride IVPB 200 mls/hr DAILY MELANIA Administration Levothyroxine Sodium 50 mcg 02/02/17 07:00 02/04/17 06:01 Synthroid - PO 50 mcg DAILY@0700 MELANIA Administration Sodium Phosphate 133 ml 02/04/17 13:00 Fleet Adult Rectal Enema - RC 02/04/17 14:01 Q1H MELANIA Objective: Vital Signs Period Temp Pulse Resp BP Sys/Arenas Pulse Ox Last 24 Hr 98 F-99 F 66-82 20-20 114-132/51-80 98 Physical Exam: General: NAD, A&Ox3 Abd: Lower abdominal tenderness CBCD WBC 7.7 K/mm3 (4.0-10.0) 02/04/17 06:40 RBC 4.28 M/mm3 (3.60-5.2) 02/04/17 06:40 Hgb 12.6 GM/dL (10.7-15.3) 02/04/17 06:40 Hct 36.9 % (32.4-45.2) 02/04/17 06:40 MCV 86.2 fl (80-96) 02/04/17 06:40 MCHC 34.0 g/dl (32.0-36.0) 02/04/17 06:40 RDW 14.1 % (11.6-15.6) 02/04/17 06:40 Plt Count 233 K/MM3 (134-434) 02/04/17 06:40 MPV 6.8 fl (7.5-11.1) L 02/04/17 06:40 CMP Sodium 139 mmol/L (136-145) 02/04/17 06:35 Potassium 3.6 mmol/L (3.5-5.1) 02/04/17 06:35 Chloride 103 mmol/L (98-107) 02/04/17 06:35 Carbon Dioxide 27 mmol/L (21-32) 02/04/17 06:35 Anion Gap 9 (8-16) 02/04/17 06:35 BUN 6 mg/dL (7-18) L 02/04/17 06:35 Creatinine 0.9 mg/dL (0.55-1.02) 02/04/17 06:35 Creat Clearance w eGFR > 60 (>60) 02/04/17 06:35 Random Glucose 96 mg/dL (74-106) 02/04/17 06:35 Calcium 8.3 mg/dL (8.5-10.1) L 02/04/17 06:35 Total Bilirubin 0.3 mg/dL (0.2-1.0) D 02/04/17 06:35 AST 28 U/L (15-37) D 02/04/17 06:35 ALT 33 U/L (12-78) 02/04/17 06:35 Alkaline Phosphatase 68 U/L (45-117) 02/04/17 06:35 Total Protein 7.7 g/dl (6.4-8.2) 02/04/17 06:35 Albumin 3.8 g/dl (3.4-5.0) 02/04/17 06:35 Microbiology 02/01/17 21:13 Stool Salmonella/Shigella Culture - Preliminary NO ENTERIC PATHOGENS, 24 HOURS, ON PRIMARY PLATES 02/01/17 21:13 Stool Yersinia Culture - Preliminary NO ENTERIC PATHOGENS, 24 HOURS, ON PRIMARY PLATES 02/01/17 21:13 Stool Vibrio Culture - Preliminary NO ENTERIC PATHOGENS, 24 HOURS, ON PRIMARY PLATES 02/01/17 21:13 Stool Escherichia coli 0157 Culture - Preliminary NO ENTERIC PATHOGENS, 24 HOURS, ON PRIMARY PLATES 02/01/17 19:23 Urine - Urine Clean Catch Urine Culture - Final NO GROWTH OBTAINED 02/02/17 09:10 Stool Cryptosporidium Antigen - Final 02/02/17 09:10 Stool Giardia Antigen (GLENROY) - Final Assessment: This is a 66 year old female with PMHx of hyperlipidemia, hypothyroid and osteopenia who presented to the ED with abdominal cramping and blood in stool. Plan: 1) GI: Acute colitis - Continue Ceftriaxone and Flagyl (02/02- ) - Continue IVF - NPO for flex sigmoidoscopy today - Stool cultures as above - Stool for occult blood negative - Hgb remains stable - Appreciate GI consult 2) Cardiology: Hyperlipidemia - Continue Lipitor 3) Endocrine: Hypothyroidism - Continue Synthroid 4) F/E/N: - NPO - IV fluids - Monitor electrolytes 5) Prophylaxis: - Hold all chemical DVT prophylaxis 2/2 flex sigmoidoscopy today with possible biopsy - OOB ambulating 6) Dispo: - Requires continued inpatient care CODE STATUS: FULL CODE Visit type - Emergency Visit Emergency Visit: Yes ED Registration Date: 02/02/17 Care time: The patient presented to the Emergency Department on the above date and was hospitalized for further evaluation of their emergent condition. - New Patient This patient is new to me today: Yes Date on this admission: 02/04/17 - Critical Care Critical Care patient: No
[2017-02-04] MEDS ORDERED: METOCLOPRAMIDE HCL INJECTION 10 MG/2 ML VIAL ONE (15:00)
[2017-02-04] MEDS ORDERED: PROPOFOL 20 ML ONE ×2 (15:00)
--- NOTE | 2017-02-04 15:41 | PN ---
Progress Note (short form) - Note Progress Note: gastroenterology sigmoidoscopy showed a colitis (doesn't fit classic ischemis, possible IBD or viral ) from sigmoid to distal descending colon. Beyond 40cm the colonic mucosa was normal advance diet to low residue and continue that for one week then to regular diet cmv dna pcr serum script for outpatient blood work ok to d/c tomorrow I ordered IBD panel continue abx, start mesalamine follow biopsy follow up gi doc in [place] if she will not remain in [place] Alonso Rodríguez MD Problem List - Problems (1) Colitis Code(s): K52.9 - NONINFECTIVE GASTROENTERITIS AND COLITIS, UNSPECIFIED (2) Abdominal pain Code(s): R10.9 - UNSPECIFIED ABDOMINAL PAIN (3) Rectal bleeding Code(s): K62.5 - HEMORRHAGE OF ANUS AND RECTUM (4) Diarrhea Code(s): R19.7 - DIARRHEA, UNSPECIFIED
[2017-02-04] MEDS: MESALAMINE 800 MG TABLET.DR PO SCH ×2 (18:30→21:02)
[2017-02-04] MEDS: ATORVASTATIN CA 10 MG TABLET (FP) PO SCH (21:01)
[2017-02-05] MEDS: SODIUM CHLORIDE 1,000 ML IV SCH (01:08)
[2017-02-05] MEDS: METRONIDAZOLE 500 MG PREMIXED 100 ML IVPB SCH ×2 (01:08→11:00)
[2017-02-05] MEDS: MESALAMINE 800 MG TABLET.DR PO SCH ×2 (06:36→14:04)
[2017-02-05] MEDS: LEVOTHYROXINE NA 50 MCG TABLET (FP) PO SCH (06:37)
[2017-02-05] MEDS ORDERED: DEXTROSE 5%-WATER - 50 ML IVPB ONE (09:00)
[2017-02-05] MEDS ORDERED: cefTRIAXone SODIUM 1 GM VIAL ONE (09:00)
[2017-02-05] MEDS ORDERED: PANTOPRAZOLE SODIUM 40 MG VIAL ONE (09:01)
[2017-02-05] MEDS ORDERED: SODIUM CHLORIDE 100 ML IVPB ONE (09:01)
[2017-02-05] MEDS: CEFTRIAXONE 1 GM in DEXTROSE 5%-WATER - 50 ML IVPB SCH (09:29)
[2017-02-05 09:34] VITALS: BP 151/79; PULSE 81; TEMP 98.7
[2017-02-05] MEDS: PANTOPRAZOLE SODIUM 40 MG in SODIUM CHLORIDE 100 ML IVPB SCH (10:03)
--- NOTE | 2017-02-05 13:37 | DS ---
Physical Examination Vital Signs: Vital Signs Temperature 98.7 F 02/05/17 09:33 Pulse Rate 81 02/05/17 09:33 Respiratory Rate 20 02/05/17 09:33 Blood Pressure 151/79 02/05/17 09:33 O2 Sat by Pulse Oximetry (%) 100 02/04/17 18:00 Discharge Summary Reason For Visit: COLITIS Current Active Problems Abdominal pain (Acute) Colitis (Acute) Diarrhea (Acute) Rectal bleeding (Acute) Condition: Improved - Instructions Diet, Activity, Other Instructions: Please return to the ED with new, persistent, or worsening symptoms. Please follow-up with providers as indicated. Continue low residue diet for one week then resume regular diet. Referrals: Jett Harrington MD [Staff Physician] - 1 Week Alonso Rodríguez MD [Staff Physician] - (Please follow-up with Dr. Rodríguez within 1 week for biopsy results. ) Disposition: HOME - Home Medications Comprehensive Discharge Medication List: Ambulatory Orders Atorvastatin Ca [Lipitor] 10 mg PO HS 02/01/17 Levothyroxine [Synthroid -] 50 mcg PO DAILY 02/01/17 Risedronate Sodium 35 mg PO DAILY 02/01/17 Cmv Dna Pcr 0 ea NR ONCE #1 ea 02/05/17 Levofloxacin [Levaquin] 750 mg PO DAILY #6 tab 02/05/17 Mesalamine [Asacol HD -] 800 mg PO TID #90 mg 02/05/17 Metronidazole [Flagyl -] 500 mg PO Q8H #18 tablet 02/05/17 - Discharge Referral Referred to [facility] No
[2017-02-05] MEDS ORDERED: PT OWN MED DRAWER 7, Y5N ONE (13:55)
--- NOTE | 2017-02-06 13:29 | PATH ---
Surgical Pathology Report Patient Name: TRISH ESPARZA Med. Rec. #: [id number] /Age/Gender: 1950 (Age: 66) / F Account: [id number] Location: [facility] MED/SURG Taken: 02/04/2017 Received: 02/05/2017 Reported: 02/06/2017 Physicians: Amy Bryan AGACNP Specimen(s) Received BX LEFT COLON Clinical History Rectal bleeding, rule out ischemic colitis on CT scan Colitis in sigmoid and distal descending colon Final Diagnosis COLON, LEFT, BIOPSY: COLONIC MUCOSA WITH FOCAL ACTIVE COLITIS WITH FOCAL CRYPTITIS, FOCAL MUCOSAL HEMORRHAGE, FOCAL LAMINA PROPRIA FIBROSIS AND FOCAL MILD CRYPT REGENERATIVE CHANGES (SEE COMMENT). NO EVIDENCE OF GRANULOMATA OR DYSPLASIA. Comment: The histologic findings are not specific and may represent an active colitis of various etiologies including infections and drug/toxin injury. Focal crypt regenerative changes are noted, idiopathic bowel disease without well-established chronicity cannot be excluded. Ischemic injury is less likely. Clinical, endoscopic, serological correlations and followup are suggested. Electronically Signed Freddy South M.D. Gross Description Received in formalin, labeled "biopsy left colon" are 2 alvarado, irregular portions of soft tissue measuring 0.3 and 0.4 cm in greatest dimension. The specimens are submitted in toto in one cassette. 02/05/201702/05/2017
[2017-02-07 16:30] LABS: ACCA 26 units (0-90); ALCA 51 units (0-60); AMCA 32 units (0-100); ATYP PANCA. Negative (Negative); gASCA 39 units (0-50)
== END 2017-02-05 15:22 | disposition home or self-care (01) | DRG 182 ==
LOC: JER 17:35 → UNDOADMIN 02-02 01:02 → JERBED 02-02 01:02 → INTOOBSV 02-02 01:11 → J7W 02-02 02:47 → OBSVTOIN 02-04 14:22
PROVIDERS: ADMIT Internal Medicine; ATTEND Registered Nurse
PROC: 0DBN8ZX Excision of Sigmoid Colon, Via Natural or Artificial Opening Endoscopic, Diagnostic (ICD-10-PCS; principal; 2017-02-04 13:00)
DX: K52.9 Noninfective gastroenteritis and colitis, unspecified (principal); E87.2 Acidosis; E86.0 Dehydration; K62.5 Hemorrhage of anus and rectum; E78.00 Pure hypercholesterolemia, unspecified; E03.9 Hypothyroidism, unspecified; M85.80 Other specified disorders of bone density and structure, unspecified site
CPT/HCPCS: 36415; 74177-TC; 80048; 80053; 80061; 81003; 82272; 83516; 83605; 83721; 83735; 84100; 85025; 85610; 86255; 86671; 86850; 86900; 86901; 87045; 87046; 87086; 87328; 87329; 88305-TC; 99285-25; G0378

== ENCOUNTER 2017-04-22 14:20 | Day surgery (SDC) | payer OTHER ==
[2017-04-22 14:29] VITALS: BMI 29.5
[2017-04-22] MEDS ORDERED: PROPOFOL 20 ML ONE (15:54)
[2017-04-22 16:36] VITALS: TEMP 98.6
[2017-04-22 17:22] VITALS: BP 144/66; PULSE 76
--- NOTE | 2017-04-24 13:03 | PATH ---
Surgical Pathology Report Patient Name: TRISH ESPARZA [facility]. Rec. #: [id number] /Age/Gender: 1950 (Age: 66) / F Account: [id number] Location: U-ENDOSCOPY Taken: 04/23/2017 Received: 04/23/2017 Reported: 04/24/2017 Physicians: Alonso Rodríguez M.D. Specimen(s) Received A: BX FLAT POLYP DESCENDING COLON B: SPLENIC FLEXURE BIOPSY Clinical History Left sided ulcerative colitis First degree hemorrhoids, colon polyps Final Diagnosis A. COLON, DESCENDING, FLAT POLYP, BIOPSY: CONSISTENT WITH POSTINFLAMMATORY-TYPE POLYP. B. COLON, SPLENIC FLEXURE, POLYP, BIOPSY: HYPERPLASTIC TYPE POLYP WITH FEATURES OF SESSILE SERRATED ADENOMA. Electronically Signed Freddy South M.D. Gross Description A. Received in formalin, labeled "flat polyp descending colon" are 2 alvarado, irregular portions of soft tissue measuring 0.1 and 0.3 cm in greatest dimension. The specimens are submitted in toto in one cassette. B. Received in formalin, labeled "biopsy splenic flexure" is a alvarado, irregular portion of soft tissue measuring 0.6 cm in greatest dimension. The specimen is submitted in toto in one cassette. 04/23/201704/23/2017
== END 2017-04-22 17:22 | disposition home or self-care (01) ==
LOC: JASU-ENDO 14:20
PROVIDERS: ATTEND Internal Medicine Gastroenterology
PROC: 0DBN8ZX Excision of Sigmoid Colon, Via Natural or Artificial Opening Endoscopic, Diagnostic (ICD-10-PCS; 2017-04-22)
PROC: 0DBM8ZX Excision of Descending Colon, Via Natural or Artificial Opening Endoscopic, Diagnostic (ICD-10-PCS; principal; 2017-04-22 15:30)
DX: K51.50 Left sided colitis without complications (principal); D12.4 Benign neoplasm of descending colon; D12.5 Benign neoplasm of sigmoid colon
CPT/HCPCS: 88305-TC